=== PATIENT | male | born 1985 | race Caucasian/White ===

== ENCOUNTER → 2019-09-27 11:25 | Outpatient (CLI) | payer BC, SELFPAY ==
--- NOTE | 2019-09-27 20:18 | STRESSREP ---
Stress Test Report Exercise stress test. 34-year-old man for cardiac physical. Stress protocol: Resting EKG demonstrates normal sinus rhythm with a rate of 58 bpm normal intervals are noted. The patient exercised according to regular [facility] protocol for total duration of 14 minutes. The maximum heart rate attained was 179 bpm which was 97% of maximum predicted heart rate the maximum workload was 17.2 metabolic equivalents. The patient maintained sinus rhythm throughout the recording. At rest there were no ST or T wave changes noted suggest ischemia peak exercise upsloping ST changes only were noted with no meet the criteria for ischemia. Resting blood pressures 120/80 with a peak blood pressure 178/88 mmHg. The test was terminated due to target heart rate being achieved. Rate pressure product was 26,300. Conclusion: Exercise stress test with no EKG criteria for ischemia at a high workload. Excellent functional aerobic capacity.
== END ==
PROVIDERS: Family Provider Student in an Organized Health Care Education/Training Program; PCP Student in an Organized Health Care Education/Training Program; Referring Provider Student in an Organized Health Care Education/Training Program; Visit Provider Student in an Organized Health Care Education/Training Program
DX: R07.9 Chest pain, unspecified (principal)
CPT/HCPCS: 93017